=== PATIENT | male | born 1990 | race African-American/Black ===

== ENCOUNTER 2020-07-22 09:30 | Emergency (ER) | payer OTHER ==
[~2020-07-22] VITALS: Ht 188 cm; Wt 81.6 kg
--- NOTE | 2020-07-22 09:44 | NUR ---
PT REC'D TO ER C/O PAIN RT SIDE FACE SWOLLEN PAIN 10/10 IV STARTED 20 RT FA PT TOLERATED WELL
[2020-07-22] MEDS ORDERED: DEXAMETHASONE SOD PHOSPHATE 10 MG/ML VIAL ONE (09:52)
[2020-07-22] MEDS ORDERED: KETOROLAC TROMETHAMINE INJ 30 MG/ML VIAL ONE (09:53)
[2020-07-22] MEDS ORDERED: IBUPROFEN 400 MG TABLET ONE (09:53)
[2020-07-22] MEDS ORDERED: IV NS 0.9% 1,000 ML BAG IV ONE (10:00)
[2020-07-22] MEDS ORDERED: VANCOMYCIN 1 GM in IV D5W 250 ML IV ONE (10:00)
[2020-07-22] MEDS ORDERED: KETOROLAC TROMETHAMINE INJ 30 MG/ML VIAL IV ONE (10:00)
[2020-07-22] MEDS ORDERED: PIPERACILLIN /TAZOBACTAM 3.375 G in IV D5W 50 ML IV ONE (10:00)
[2020-07-22] MEDS ORDERED: DEXAMETHASONE SOD PHOSPHATE 10 MG/ML VIAL IV ONE (10:00)
[2020-07-22 10:23] LABS: BASOPHILS # (AUTO) 0.1 /CMM (0.0-0.2); BASOPHILS % (AUTO) 0.6 % (0.0-2.0); EOSINOPHILS % (AUTO) 0.5 % (0.0-6.0); HEMATOCRIT 42 % (39-51); HEMOGLOBIN 13.8 g/dL (13.5-17.5); LYMPHOCYTES # (AUTO) 0.7 /CMM (0.8-4.8); LYMPHOCYTES % (AUTO) 7.7 % (20.0-44.0); MEAN CORPUSCULAR HGB CONC 33 g/dl (31.0-36.0); MEAN CORPUSCULAR VOLUME 92 fL (80-96); MONOCYTES # (AUTO) 1.1 /CMM (0.1-1.30); MONOCYTES % (AUTO) 11.8 % (2.0-12.0); NEUTROPHILS # (AUTO) 7.5 /CMM (1.8-8.9); NEUTROPHILS % (AUTO) 79.4 % (43.0-81.0); PLATELET COUNT (AUTO) 245 /CMM (150-450); RED BLOOD CELL COUNT(AUTO) 4.58 MIL/uL (4.5-6.0); WHITE BLOOD COUNT (AUTO) 9.5 K/uL (4.3-11.0)
--- NOTE | 2020-07-22 10:33 | NUR ---
LABS DRAWN SENT TO LAB VSS MEDS AND ANBX GIVEN PER MD ORDER
[2020-07-22 10:43] LABS: CALCIUM, SERUM 8.5 mg/dL (8.5-10.1); CREATININE 0.8 mg/dL (0.6-1.3); POTASSIUM 4.2 mmol/L (3.5-5.1)
--- NOTE | 2020-07-22 10:55 | NUR ---
PT SLEEPING SOUNDLY CONT TO MONITOR
[2020-07-22] MEDS ORDERED: METH4TAB3 PO (11:07)
[2020-07-22] MEDS ORDERED: TRAM50TA2 PO (11:07)
[2020-07-22] MEDS ORDERED: CLIN300C12 PO (11:07)
[2020-07-22] MEDS ORDERED: AMOX-430 PO (11:07)
--- NOTE | 2020-07-22 11:38 | NUR ---
PT STATED FEELING BETTER . PT. VERBALIZED UNDERSTANDING OF AFTERCARE INSTRUCTIONS.IV removed. Catheter intact and site benign. Pressure and 4x4 applied to site. No bleeding noted.
[2020-07-22 11:39] VITALS: BP 118/75
[2020-07-23] MEDS ORDERED: IBUPROFEN 400 MG TABLET PO ONE (17:00)
== END 2020-07-22 11:41 | disposition home or self-care (01) ==
LOC: ER 09:41
DX: K04.7 Periapical abscess without sinus (principal)
CPT/HCPCS: 36415; 80048; 85025; 96365; 96368; 96375; 99284; J1100; J1885; J2543; J3370; J7030; J7060